=== PATIENT | male | born 1980 | race Hispanic/Latino ===

== ENCOUNTER 2025-03-31 09:42 | Emergency (ER) | payer OTHER, SELFPAY ==
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
[2025-03-31 09:53] VITALS: BP 147/90; PULSE 77; RESP 18; TEMP 36.4; O2SAT 99
[2025-03-31 10:42] LABS: Basophils Percent Auto 0.3 % (0.2-1.2); Eosinophils Percent Auto 0.2 % (0-4.4); Hematocrit 44.2 % (42.0-52.0); Hemoglobin 14.6 g/dL (14.0-18.0); Immature Granulocyte Absolute 0.03 K/mm3 (0.00-0.031); Immature Granulocyte Percent A 0.3 % (0-0.5); Lymphocytes Percent Auto 21.4 % (18.3-44.2); Mean Corpuscular Volume 87.9 fl (80-100); Mean Platelet Volume 11.6 fl (7.4-10.4); Monocytes Absolute Auto 0.7 K/mm3 (0.1-0.6); Monocytes Percent Auto 7.9 % (2.6-8.5); Neutrophils Absolute Auto 6.2 K/mm3 (1.3-6.7); Neutrophils Percent Auto 69.9 % (45.5-73.1); Platelet Count Result 184 k/mm3 (150-375); Red Blood Count 5.03 M/mm3 (4.6-6.20); Red Cell Distribution Width 12.3 % (11.5-14.5); White Blood Count 8.9 K/mm3 (4.5-10.0)
[2025-03-31 10:53] LABS: Alanine Aminotransferase 52 U/L (6-50); Albumin Level 4.9 g/dL (3.5-5.1); Alkaline Phosphatase 76 U/L (38-126); Anion Gap 10 mmol/L (4-12); Aspartate Amino Transferase 51 U/L (17-59); Bilirubin,Total 0.6 mg/dL (0.2-1.3); Blood Urea Nitrogen 14 mg/dL (9-20); Calcium 8.8 mg/dL (8.4-10.2); Carbon Dioxide 28 mmol/L (22-30); Chloride 101 mmol/L (98-107); Estimated CRCL calculation 98 ml/min; Estimated Glomerular Filt Rate > 60; Glucose 104 mg/dL (65-110); Potassium 4.3 mmol/L (3.4-5.0); Sodium 139 mmol/L (137-145)
[2025-03-31 11:12] LABS: Prothrombin Time 13.3 Seconds (11.1-14.7)
[2025-03-31 11:13] LABS: Partial Thromboplastin Time 26.7 Seconds (22.3-36.8)
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
[2025-03-31] MEDS: ONDANSETRON INJ 4 MG/2 ML VIAL IV PUSH (11:58)
[2025-03-31] MEDS: MORPHINE SULFATE (*CRX) 4 MG/ML INJ IV PUSH (11:58)
[2025-03-31] MEDS: ceFAZolin SODIUM 1 GM VIAL IV PUSH (12:32)
[2025-03-31] MEDS: WATER, STERILE FOR INJECTION 10 ML VIAL XX (12:50)
[2025-03-31] MEDS: HYDROcodone/acetaminophen (*CRX) 5-325 MG TABLET 1 TAB PO (13:30)
[2025-03-31 13:50] VITALS: BP 136/84; PULSE 80; RESP 14; O2SAT 99
== END 2025-03-31 13:50 | disposition home or self-care (01) ==
PROVIDERS: Emergency Provider Physician Assistant
DX: S62.636B Displaced fracture of distal phalanx of right little finger, initial encounter for open fracture (principal); M47.812 Spondylosis without myelopathy or radiculopathy, cervical region; V49.40XA Driver injured in collision with unspecified motor vehicles in traffic accident, initial encounter
CPT/HCPCS: 29130; 36415; 70450; 71260; 72125; 73110; 73130; 74177; 80053; 85025; 85610; 85730; 96374; 96375; 99284; A9270; J0690; J2003; J2270; J2405; L0140; Q9967